=== PATIENT | female | born 1985 | race Caucasian/White ===

== ENCOUNTER → 2021-02-10 15:30 | Outpatient (BNVA) | payer OTHER, SELFPAY | PROVIDERS: Family Provider Family Medicine; Visit Provider Obstetrics & Gynecology | DX: Z12.4 Encounter for screening for malignant neoplasm of cervix (principal); R63.5 Abnormal weight gain | CPT/HCPCS: 88175 ==

== ENCOUNTER → 2021-02-12 09:15 | Outpatient (BNVA) | payer OTHER, SELFPAY | PROVIDERS: Family Provider Family Medicine; Visit Provider Obstetrics & Gynecology | DX: R63.5 Abnormal weight gain (principal) | CPT/HCPCS: 80053; 80061; 83036; 85025 ==

== ENCOUNTER → 2021-02-24 10:10 | Outpatient (BNVA) | payer OTHER, SELFPAY | PROVIDERS: Family Provider Family Medicine; Visit Provider Obstetrics & Gynecology | DX: R63.5 Abnormal weight gain (principal) | CPT/HCPCS: 84443 ==

== ENCOUNTER → 2024-09-16 11:03 | Outpatient (BNVA) | payer OTHER, SELFPAY | PROVIDERS: Family Provider Family Medicine; PCP Family Medicine; Visit Provider Registered Nurse Neonatal Intensive Care | DX: Z20.818 Contact with and (suspected) exposure to other bacterial communicable diseases (principal) | CPT/HCPCS: 87880 ==

== ENCOUNTER → 2024-09-19 16:54 | Outpatient (BNVA) | payer OTHER, SELFPAY | PROVIDERS: Family Provider Family Medicine; PCP Family Medicine | DX: J18.1 Lobar pneumonia, unspecified organism (principal); R05.3 Chronic cough; R05.9 Cough, unspecified | CPT/HCPCS: 71046; 87400; 87426 ==

== ENCOUNTER 2024-09-22 20:14 | Observation (INO) | payer OTHER, SELFPAY ==
[2024-09-22 20:18] VITALS: BP 144/85; PULSE 126; RESP 22; TEMP 37; O2SAT 89; BMI 38.2
--- NOTE | 2024-09-22 20:31 | ED_ITS ---
Documented by User: JACE Beaver 09/22/24 23:16 HPI - SOB/Dyspnea 2 General: Chief Complaint: Shortness of Breath/Dyspnea Stated Complaint: pnemonia + o2 in 80 SOB Time Seen by Provider: 09/22/24 20:30 History of Present Illness: HPI Narrative: 39-year-old female comes in today with s hortness of breath. Patient reports her illness started on the14 September. Patient was seen on the and was treated for strep pharyngitis with amoxicillin. Patient strep test was negative at that time but her son had a positive test. Patient on the we follow back up due to persistent symptoms and cough. Patient was evaluated for COVID and flu at that time and was negative. Patient then was given a injected with antibiotic and started on cefdinir. Patient reports that her oxygen saturation at home has been in the upper 80s to low 90s. Patient came in tonight due to persistent symptoms and feeling of shortness of breath. Patient has no chronic medical problems. Patient's had had 2 life and fifth bursts. Patient takes no routine medicines. Chest x-ray noted some left lower lobe pneumonia and right upper lobe pneumonia on the . Related Data Previous Rx's Medication Instructions Recorded fluticasone propionate 50 2 spray intranasal DAILY #16 grams 09/13/23 mcg/actuation nasal spray,suspension (Flonase Allergy Relief) cefdinir 300 mg capsule 300 mg PO BID #20 caps 09/19/24 Allergies Allergy/AdvReac Type Severity Reaction Status Date / Time No Known Allergies Allergy Verified 09/22/24 20:25 Review of Systems 2 General: Reports: 10 or more systems reviewed and unremarkable except in HPI and below Resp: Reports: dyspnea PFSH ED 2 PFSH: Medical History No pertinent past medical history Surgical History No history of previous surgery Family History Father Diabetes Mother Thyroid disease Hypertension Denies family history of Colon cancer Ovarian cancer Heart disease Hyperlipidemia Breast cancer Uterine cancer Stroke Social History Smoking and tobacco/nicotine status: unknown if used tobacco/nicotine Alcohol intake: current Alcohol intake frequency: few times a month Substance/Drug Use: never Household members: spouse and children Marital status: Number of children: 2 Current occupational status: employed Current occupation: clerk travel reservations for [employer] Leisure activites: reading Special bridget needs: No Agree to transfusion: Yes Physical Exam 2 Const: COMMON NORMALS: alert HENMT: COMMON NORMALS: normocephalic HEAD & SCALP: normocephalic Neck/C-Spine: COMMON NORMALS: full ROM Resp: COMMON NORMALS: normal respiratory effort AUSCULTATION: crackles Cardio: COMMON NORMALS: regular rhythm RATE: tachycardic RHYTHM: regular rhythm GI: COMMON NORMALS: non-tender : COMMON NORMALS: Yes no CVA tenderness BLADDER/KIDNEY EXAM: Yes no CVA tenderness Back/Pelvis: COMMON NORMALS: no CVA tenderness Extremity: COMMON NORMALS: full ROM Neuro: SENSORIUM/ORIENTATION: Yes alert Skin: COMMON NORMALS: turgor normal GENERAL SKIN EXAM: turgor normal Course 2 Vital Signs: Vital signs: Vital Signs Temperature 98.6 F 09/22/24 20:18 Pulse Rate 96 09/22/24 22:00 Respiratory Rate 16 09/22/24 22:00 Blood Pressure 134/70 09/22/24 22:00 Pulse Oximetry 95 09/22/24 22:00 Oxygen Delivery Me thod Nasal Cannula 09/22/24 22:00 Oxygen Flow Rate 1.5 09/22/24 22:00 MDM - SOB/Dyspnea Medical Decision Making Patient comes in for persistent worsening symptoms after being diagnosed with pneumonia on 19 September. On exam patient has crackles in the lung dudley throughout. Patient's oxygen saturation is 89% on room air. Patient's pulse was 126 and respirations 22 patient was afebrile and blood pressure was 144/85. Differential diagnosis includes pneumonia, respiratory failure, sepsis, pulmonary embolism, CHF. CBC was unremarkable. D-dimer was 2. CMP noted sodium 133, potassium 3.1, CRP of 168. Chest x-ray noted no change in pneumonia with the major consolidation being on the left upper lobe and some infrahilar and left lower lobe infiltrates. CT ruled out PE and confirmed probable pneumonia. Reviewed exam with Dr. Dangelo he agreed with plan for admission to hospitalist services for antibiotic therapy and oxygen therapy. Discussed patient with Dr. Adams who agreed with admission. Lab Data 09/22/24 20:37 09/22/24 20:37 Labs/Radiology: Radiology Impressions Chest CTA 09/22/24 20:46 IMPRESSION: 1. No evidence of a pulmonary embolism. 2. Bilateral patchy pulmonary opacities and areas of consolidation most severe in the right upper lobe. Findings consistent with provided history of pneumonia. Chest X-Ray 09/22/24 20:46 IMPRESSION: No significant change in the patchy pulmonary opacities/infiltrates predominantly in the right upper lobe and left lower lobe and lingula. Laboratory Results WBC 6.10 10^3/uL (3.29-11.43) 09/22/24 20:37 RBC 4.30 10^6/uL (3.85-5.65) 09/22/24 20:37 Hgb 11.80 g/dL (11.27-16.99) 09/22/24 20:37 Hct 35.7 % (36-47) L 09/22/24 20:37 MCV 83.0 fl (85-98) L 09/22/24 20:37 MCH 27.4 pg (27-33) 09/22/24 20:37 MCHC 33.1 g/dL (30-55) 09/22/24 20:37 RDW 13.4 % (12.1-15.1) 09/22/24 20:37 Plt Count 292 10^3/cmm (157-399) 09/22/24 20:37 MPV 9.7 fL (7.4-10.4) 09/22/24 20:37 Neut % (Auto) 71.4 % 09/22/24 20:37 Lymph % (Auto) 17.4 % 09/22/24 20:37 [place] % (Auto) 9.7 % 09/22/24 20:37 Eos % (Auto) 0.3 % 09/22/24 20:37 Baso % (Auto) 0.2 % 09/22/24 20:37 Neut # (Auto) 4.36 10^3/uL (1.8-7.7) 09/22/24 20:37 Lymph # (Auto) 1.1 10^3/uL (0.8-4.8) 09/22/24 20:37 [place] # (Auto) 0.6 10^3/uL (0.2-0.9) 09/22/24 20:37 Eos # (Auto) 0.0 10^3/uL (0.0-0.8) 09/22/24 20:37 Baso # (Auto) 0.0 10^3/uL (0.0-0.1) 09/22/24 20:37 Nucleated RBC % (auto) 0 % 09/22/24 20:37 Nucleated RBCs # 0.0 /100WBC 09/22/24 20:37 ESR 67 mm/hr (0-15) H 09/22/24 20:37 D-Dimer 2.09 ug/mLFEU (0-0.59) H 09/22/24 20:37 Sodium 133 mmol/L (136-145) L 09/22/24 20:37 Potassium 3.1 mmol/L (3.5-5.1) L 09/22/24 20:37 Chloride 92 mmol/L (98-107) L 09/22/24 20:37 Carbon Dioxide 26 mmol/L (22-29) 09/22/24 20:37 Anion Gap 18.1 (5-19) 09/22/24 20:37 BUN 4 mg/dL (6-20) L 09/22/24 20:37 Creatinine 0.6 mg/dL (0.5-0.9) 09/22/24 20:37 GFR Calculation 111.9 mL/min (90-130) 09/22/24 20:37 Glucose 110 mg/dL (65-115) 09/22/24 20:37 Calculated Osmolality 274 mOsm/kg (285-295) L 09/22/24 20:37 Lactic Acid 1.1 mmol/L (0.5-2.2) 09/22/24 20:37 Calcium 8.3 mg/dL (8.5-10.5) L 09/22/24 20:37 Total Bilirubin 0.3 mg/dL (0.15-1.2) 09/22/24 20:37 AST 22 U/L (0-32) 09/22/24 20:37 ALT 17 U/L (0-33) 09/22/24 20:37 Alkaline Phosphatase 42 U/L (35-105) 09/22/24 20:37 C-Reactive Protein 168.4 mg/L (0.0-4.9) H 09/22/24 20:37 Total Protein 7.5 g/dL (6.6-8.7) 09/22/24 20:37 Albumin 3.7 g/dL (3.5-5.2) 09/22/24 20:37 Globulin 3.8 g/dL (1.3-4.6) 09/22/24 20:37 Procalcitonin 0.11 ng/mL (0-0.5) 09/22/24 20:37 HCG, Qual Negative (Negative) 09/22/24 20:37 Urine Color Yellow (Yellow) 09/22/24 22:05 Urine Appearance Clear (CLEAR) 09/22/24 22: Urine pH 8.0 (5-7) A 09/22/24 22: Ur Specific [place] 1.083 (1.005-1.030) H 09/22/24 22: Urine Protein 1+ (Negative) A 09/22/24 22: Urine Glucose (UA) Negative (Normal) 09/22/24 22: Urine Ketones 2+ (Negative) H 09/22/24 22:05 Urine Blood Negative (Negative) 09/22/24 22: Urine Nitrate Negative (Negative) 09/22/24 22: Urine Bilirubin Negative (Negative) 09/22/24 22: Urine Urobilinogen 2.0 mg/dL (Negative) H 09/22/24 22:05 Ur Leukocyte Esterase Negative (Negative) 09/22/24 22:05 Urine RBC 0-2 /hpf (0-2) 09/22/24 22:05 Urine WBC 0-5 /hpf (0-5) 09/22/24 22:05 Ur Squamous Epith Cells 0-5 /hpf (0-5) 09/22/24 22:05 Amorphous Sediment Not Reportable 09/22/24 22:05 Urine Bacteria None seen /hpf (NONE) 09/22/24 22: Hyaline Casts 0.40 /lpf 09/22/24 22:05 Adenovirus (PCR) Not detected (NOT DETECT) 09/22/24 21:28 C. pneumoniae DNA (PCR) Not detected (NOT DETECT) 09/22/24 21: Coronavirus 229E (PCR) Not detected (NOT DETECT) 09/22/24 21:28 Human Metapneumovir PCR Not detected (NOT DETECT) 09/22/24 21:28 Influenza A (H1) PCR Not detected (NOT DETECT) 09/22/24 21:28 Influ A (H1/09) PCR Not detected (NOT DETECT) 09/22/24 21:28 Influenza A (H3) PCR Not detected (NOT DETECT) 09/22/24 21:28 Influenza Type A (PCR) Not detected (NOT DETECT) 09/22/24 21:28 Influenza Type B (PCR) Not detected (NOT DETECT) 09/22/24 21:28 M. pneumoniae (PCR) Not detected (NOT DETECT) 09/22/24 21:28 Parainfluenza 1 (PCR) Not detected (NOT DETECT) 09/22/24 21:28 Parainfluenza 2 (PCR) Not detected (NOT DETECT) 09/22/24 21:28 Parainfluenza 3 (PCR) Not detected (NOT DETECT) 09/22/24 21:28 Parainfluenza 4 (PCR) Not detected (NOT DETECT) 09/22/24 21:28 RSV Type A (PCR) Not detected (NOT DETECT) 09/22/24 21:28 RSV Type B (PCR) Not detected (NOT DETECT) 09/22/24 21:28 Entero/Rhino (PCR) Not detected (NOT DETECT) 09/22/24 21:28 SARS-CoV-2 (PCR) Not detected (NOT DETECT) 09/22/24 21:28 All radiology interpretation(s) finalized by discharge EKG Data EKG 1: I personally reviewed and interpreted this EKG as follows: EKG Interpretation Date: 09/22/24 EKG interpretation time: 21:54 Prior EKG tracings: not available for review Interpretation: EKG shows a sinus rhythm with a regular rate at [address] elevation or ectopy is noted. No prior exams available for comparison. Computer Generated Interpretation: Sinus rhythm. Normal EKG. Unconfirmed report. Discharge Plan Discharge Patient Disposition: Admitted As Inpatient Clinical Impression: Hypoxemia Bilateral pneumonia Qualifiers: Pneumonia type: due to unspecified organism Lung location: unspecified part of lung Qualified Code(s): J18.9 - Pneumonia, unspecified organism Condition: Stable Coding Level of Care Code ED Release Specialist for g Fwd Documented by User: Armand Dangelo DO 09/23/24 00:21 HPI - SOB/Dyspnea 2 General: Chief Complaint: Shortness of Breath/Dyspnea Stated Complaint: pnemonia + o2 in 80 SOB Time Seen by Provider: 09/22/24 20:30 Related Data Previous Rx's Medication Instructions Recorded fluticasone propionate 50 2 spray intranasal DAILY #16 grams 09/13/23 mcg/actuation nasal spray,suspension (Flonase Allergy Relief) cefdinir 300 mg capsule 300 mg PO BID #20 caps 09/19/24 Allergies Allergy/AdvReac Type Severity Reaction Status Date / Time No Known Allergies Allergy Verified 09/22/24 20:25 PFSH ED 2 PFSH: Medical History No pertinent past medical history Surgical History No history of previous surgery Family History Father Diabetes Mother Thyroid disease Hypertension Denies family history of Colon cancer Ovarian cancer Heart disease Hyperlipidemia Breast cancer Uterine cancer Stroke Social History Smoking and tobacco/nicotine status: unknown if used tobacco/nicotine Alcohol intake: current Alcohol intake frequency: few times a month Substance/Drug Use: never Household members: spouse and children Marital status: Number of children: 2 Current occupational status: employed Current occupation: clerk travel reservations for [employer] Leisure activites: reading Special bridget needs: No Agree to transfusion: Yes Course 2 Vital Signs: Vital signs: Vital Signs Temperature 98.6 F 09/22/24 20:18 Pulse Rate 96 09/22/24 22:00 Respiratory Rate 16 09/22/24 22:00 Blood Pressure 134/70 09/22/24 22:00 Pulse Oximetry 95 09/22/24 22:00 Oxygen Delivery Me thod Nasal Cannula 09/22/24 22:00 Oxygen Flow Rate 1.5 09/22/24 22:00 MDM - SOB/Dyspnea Medical Decision Making Patient comes in for persistent worsening symptoms after being diagnosed with pneumonia on 19 September. On exam patient has crackles in the lung dudley throughout. Patient's oxygen saturation is 89% on room air. Patient's pulse was 126 and respirations 22 patient was afebrile and blood pressure was 144/85. Differential diagnosis includes pneumonia, respiratory failure, sepsis, pulmonary embolism, CHF. CBC was unremarkable. D-dimer was 2. CMP noted sodium 133, potassium 3.1, CRP of 168. Chest x-ray noted no change in pneumonia with the major consolidation being on the left upper lobe and some infrahilar and left lower lobe infiltrates. CT ruled out PE and confirmed probable pneumonia. Reviewed exam with Dr. Dangelo he agreed with plan for admission to hospitalist services for antibiotic therapy and oxygen therapy. Discussed patient with Dr. Adams who agreed with admission. This patient was originally seen by JACE Soliz.? I agree with his history, evaluation, and treatment. Lab Data 09/22/24 20:37 09/22/24 20:37 Labs/Radiology: Radiology Impressions Chest CTA 09/22/24 20:46 IMPRESSION: 1. No evidence of a pulmonary embolism. 2. Bilateral patchy pulmonary opacities and areas of consolidation most severe in the right upper lobe. Findings consistent with provided history of pneumonia. Chest X-Ray 09/22/24 20:46 IMPRESSION: No significant change in the patchy pulmonary opacities/infiltrates predominantly in the right upper lobe and left lower lobe and lingula. Laboratory Results WBC 6.10 10^3/uL (3.29-11.43) 09/22/24 20:37 RBC 4.30 10^6/uL (3.85-5.65) 09/22/24 20:37 Hgb 11.80 g/dL (11.27-16.99) 09/22/24 20:37 Hct 35.7 % (36-47) L 09/22/24 20:37 MCV 83.0 fl (85-98) L 09/22/24 20:37 MCH 27.4 pg (27-33) 09/22/24 20: MCHC 33.1 g/dL (30-55) 09/22/24 20:37 RDW 13.4 % (12.1-15.1) 09/22/24 20:37 Plt Count 292 10^3/cmm (157-399) 09/22/24 20:37 MPV 9.7 fL (7.4-10.4) 09/22/24 20:37 Neut % (Auto) 71.4 % 09/22/24 20:37 Lymph % (Auto) 17.4 % 09/22/24 20:37 [place] % (Auto) 9.7 % 09/22/24 20:37 Eos % (Auto) 0.3 % 09/22/24 20:37 Baso % (Auto) 0.2 % 09/22/24 20:37 Neut # (Auto) 4.36 10^3/uL (1.8-7.7) 09/22/24 20:37 Lymph # (Auto) 1.1 10^3/uL (0.8-4.8) 09/22/24 20:37 [place] # (Auto) 0.6 10^3/uL (0.2-0.9) 09/22/24 20:37 Eos # (Auto) 0.0 10^3/uL (0.0-0.8) 09/22/24 20:37 Baso # (Auto) 0.0 10^3/uL (0.0-0.1) 09/22/24 20:37 Nucleated RBC % (auto) 0 % 09/22/24 20:37 Nucleated RBCs # 0.0 /100WBC 09/22/24 20:37 ESR 67 mm/hr (0-15) H 09/22/24 20:37 D-Dimer 2.09 ug/mLFEU (0-0.59) H 09/22/24 20:37 Sodium 133 mmol/L (136-145) L 09/22/24 20:37 Potassium 3.1 mmol/L (3.5-5.1) L 09/22/24 20:37 Chloride 92 mmol/L (98-107) L 09/22/24 20:37 Carbon Dioxide 26 mmol/L (22-29) 09/22/24 20:37 Anion Gap 18.1 (5-19) 09/22/24 20:37 BUN 4 mg/dL (6-20) L 09/22/24 20:37 Creatinine 0.6 mg/dL (0.5-0.9) 09/22/24 20:37 GFR Calculation 111.9 mL/min (90-130) 09/22/24 20: Glucose 110 mg/dL (65-115) 09/22/24 20:37 Calculated Osmolality 274 mOsm/kg (285-295) L 09/22/24 20:37 Lactic Acid 1.1 mmol/L (0.5-2.2) 09/22/24 20:37 Calcium 8.3 mg/dL (8.5-10.5) L 09/22/24 20:37 Total Bilirubin 0.3 mg/dL (0.15-1.2) 09/22/24 20: AST 22 U/L (0-32) 09/22/24 20:37 ALT 17 U/L (0-33) 09/22/24 20:37 Alkaline Phosphatase 42 U/L (35-105) 09/22/24 20:37 C-Reactive Protein 168.4 mg/L (0.0-4.9) H 09/22/24 20:37 Total Protein 7.5 g/dL (6.6-8.7) 09/22/24 20:37 Albumin 3.7 g/dL (3.5-5.2) 09/22/24 20:37 Globulin 3.8 g/dL (1.3-4.6) 09/22/24 20:37 Procalcitonin 0.11 ng/mL (0-0.5) 09/22/24 20:37 HCG, Qual Negative (Negative) 09/22/24 20: Urine Color Yellow (Yellow) 09/22/24 22:05 Urine Appearance Clear (CLEAR) 09/22/24 22:05 Urine pH 8.0 (5-7) A 09/22/24 22: Ur Specific [place] 1.083 (1.005-1.030) H 09/22/24 22:05 Urine Protein 1+ (Negative) A 09/22/24 22:05 Urine Glucose (UA) Negative (Normal) 09/22/24 22:05 Urine Ketones 2+ (Negative) H 09/22/24 22:05 Urine Blood Negative (Negative) 09/22/24 22:05 Urine Nitrate Negative (Negative) 09/22/24 22:05 Urine Bilirubin Negative (Negative) 09/22/24 22:05 Urine Urobilinogen 2.0 mg/dL (Negative) H 09/22/24 22:05 Ur Leukocyte Esterase Negative (Negative) 09/22/24 22:05 Urine RBC 0-2 /hpf (0-2) 09/22/24 22:05 Urine WBC 0-5 /hpf (0-5) 09/22/24 22:05 Ur Squamous Epith Cells 0-5 /hpf (0-5) 09/22/24 22:05 Amorphous Sediment Not Reportable 09/22/24 22:05 Urine Bacteria None seen /hpf (NONE) 09/22/24 22:05 Hyaline Casts 0.40 /lpf 09/22/24 22:05 Adenovirus (PCR) Not detected (NOT DETECT) 09/22/24 21:28 C. pneumoniae DNA (PCR) Not detected (NOT DETECT) 09/22/24 21: Coronavirus 229E (PCR) Not detected (NOT DETECT) 09/22/24 21: Human Metapneumovir PCR Not detected (NOT DETECT) 09/22/24 21:28 Influenza A (H1) PCR Not detected (NOT DETECT) 09/22/24 21:28 Influ A (H1/09) PCR Not detected (NOT DETECT) 09/22/24 21: Influenza A (H3) PCR Not detected (NOT DETECT) 09/22/24 21:28 Influenza Type A (PCR) Not detected (NOT DETECT) 09/22/24 21:28 Influenza Type B (PCR) Not detected (NOT DETECT) 09/22/24 21:28 M. pneumoniae (PCR) Not detected (NOT DETECT) 09/22/24 21:28 Parainfluenza 1 (PCR) Not detected (NOT DETECT) 09/22/24 21:28 Parainfluenza 2 (PCR) Not detected (NOT DETECT) 09/22/24 21:28 Parainfluenza 3 (PCR) Not detected (NOT DETECT) 09/22/24 21:28 Parainfluenza 4 (PCR) Not detected (NOT DETECT) 09/22/24 21:28 RSV Type A (PCR) Not detected (NOT DETECT) 09/22/24 21: RSV Type B (PCR) Not detected (NOT DETECT) 09/22/24 21:28 Entero/Rhino (PCR) Not detected (NOT DETECT) 09/22/24 21:28 SARS-CoV-2 (PCR) Not detected (NOT DETECT) 09/22/24 21:28 Discharge Plan Discharge Patient Disposition: Admitted As Inpatient Clinical Impression: Hypoxemia Bilateral pneumonia Qualifiers: Pneumonia type: due to unspecified organism Lung location: unspecified part of lung Qualified Code(s): J18.9 - Pneumonia, unspecified organism Condition: Stable Coding Level of Care Code ED Release Specialist for Jewell Whitmore
--- NOTE | 2024-09-22 20:46 | CTR_ITS ---
PROCEDURE INFORMATION: Exam: CTA Chest With Contrast Exam date and time: 09/22/2024 9:57 PM Age: 39 years old Clinical indication: Cough and shortness of breath and other: Hypoxia; Patient HX: C/O worsening cough with SOB. Hypoxic with sats in 80s on room air. Diagnosed with pneumonia last week. ; Additional info: Dyspnea, tachycardia TECHNIQUE: Imaging protocol: Computed tomographic angiography of the chest with contrast. Exam focused on the arteries. 3D rendering (Not supervised by radiologist): MIP and/or 3D reconstructed images were created by the technologist. Radiation optimization: All CT scans at this facility use at least one of these dose optimization techniques: automated exposure control; mA and/or kV adjustment per patient size (includes targeted exams where dose is matched to clinical indication); or iterative reconstruction. Contrast material: OMNI 350; Contrast volume: 55 ml; Contrast route: INTRAVENOUS (IV); COMPARISON: CR XR chest 2V* [id number] 09/22/2024 8:49 PM RADIATION DOSE METRICS: Total DLP (mGy-cm): 422.37 FINDINGS: Pulmonary arteries: The pulmonary arteries are well opacified with contrast. No evidence of a pulmonary embolism. Aorta: Unremarkable thoracic aorta without aneurysm or dissection. Lungs: Scattered patchy airspace opacities and consolidation bilaterally most severe in the right upper lobe consistent with provided history of pneumonia. Pleural spaces: No pneumothorax or pleural effusion. Heart: Normal size of the heart. No pericardial effusion. Lymph nodes: Scattered mediastinal and hilar lymph nodes, likely reactive. Intraperitoneal space: The visualized upper abdominal solid organs and hollow viscera are unremarkable. Bones/joints: Regional osseous structures have a normal appearance. No fracture, aggressive osseous lesion or significant degenerative change is seen. Soft tissues: The visualized superficial soft tissues have a normal appearance. CT/CT angio chest PE protcl [id number] IMPRESSION: 1. No evidence of a pulmonary embolism. 2. Bilateral patchy pulmonary opacities and areas of consolidation most severe in the right upper lobe. Findings consistent with provided history of pneumonia.
--- NOTE | 2024-09-22 20:46 | XRR_ITS ---
PROCEDURE INFORMATION: Exam: XR Chest Exam date and time: 09/22/2024 8:49 PM Age: 39 years old Clinical indication: Cough and shortness of breath; Patient HX: C/O worsening cough with SOB. Hypoxic with sats in 80s on room air. Diagnosed with pneumonia last week. TECHNIQUE: Imaging protocol: Radiologic exam of the chest. Views: 2 views. COMPARISON: CR XR chest 2V* [id number] 09/22/2024 8:49 PM FINDINGS: Lungs: Patchy opacity in the right upper lobe and left lower lobe and lingular distributions without significant change from recent prior. Pleural spaces: No pneumothorax or pleural effusion. Heart/Mediastinum: Normal size of the cardiac silhouette. Bones/joints: Regional osseous structures are unremarkable. XR/XR chest 2V* [id number] IMPRESSION: No significant change in the patchy pulmonary opacities/infiltrates predominantly in the right upper lobe and left lower lobe and lingula.
[2024-09-22 20:50] LABS: Erythrocyte Sedimentation Rate 67 mm/hr (0-15)
[2024-09-22 20:52] LABS: Basophils % 0.2 %; Eosinophils % 0.3 %; Hematocrit 35.7 % (36-47); Lymphocytes # 1.1 10^3/uL (0.8-4.8); Lymphocytes % 17.4 %; Mean Corpuscular HGB Conc 33.1 g/dL (30-55); Mean Corpuscular Hemoglobin 27.4 pg (27-33); Mean Platelet Volume 9.7 fL (7.4-10.4); Monocytes # 0.6 10^3/uL (0.2-0.9); Monocytes % 9.7 %; Neutrophils # 4.36 10^3/uL (1.8-7.7); Neutrophils % 71.4 %; Nucleated Red Blood Cells % 0 %; Platelet Count 292 10^3/cmm (157-399); Red Cell Distribution Width 13.4 % (12.1-15.1)
[2024-09-22] MEDS: iohexol 350 mg/mL 500 mL Btl (per mL) IV (21:03)
[2024-09-22 21:09] LABS: HCG, Serum Qual Negative (Negative)
[2024-09-22 21:12] LABS: D Dimer 2.09 ug/mLFEU (0-0.59)
[2024-09-22 21:16] LABS: Alanine Aminotransferase 17 U/L (0-33); Albumin Level 3.7 g/dL (3.5-5.2); Alkaline Phosphatase 42 U/L (35-105); Anion Gap 18.1 (5-19); Aspartate Amino Transferase 22 U/L (0-32); Blood Urea Nitrogen 4 mg/dL (6-20); C Reactive Protein 168.4 mg/L (0.0-4.9); Calcium 8.3 mg/dL (8.5-10.5); Carbon Dioxide 26 mmol/L (22-29); Chloride 92 mmol/L (98-107); Creatinine Clr Calc Pharmacy 141.7513; Globulin 3.8 g/dL (1.3-4.6); Glomerular Filtration Rate 111.9 mL/min (90-130); Glucose 110 mg/dL (65-115); Osmolality Calculated 274 mOsm/kg (285-295); Potassium 3.1 mmol/L (3.5-5.1); Sodium 133 mmol/L (136-145); Total Bilirubin 0.3 mg/dL (0.15-1.2); Total Protein 7.5 g/dL (6.6-8.7)
[2024-09-22 21:17] LABS: Lactic Sepsis W/Reflex 1.1 mmol/L (0.5-2.2)
[2024-09-22] MEDS: sodium chloride 0.9% 1,000 ML 999 ML IV (21:22)
[2024-09-22 21:23] LABS: Procalcitonin 0.11 ng/mL (0-0.5)
[2024-09-22] MEDS: AZITHROMYCIN ADD-Vantage 500 MG in 0.9% NaCl ADD-Vantage 250 ML 250 MG IV (21:23)
[2024-09-22 21:32] VITALS: BP 141/87; PULSE 90; RESP 16; O2SAT 99
--- NOTE | 2024-09-22 21:48 | ECG_ITS ---
"[facility]: 2024-09[facility]22 Pat Name: Marge Estrada Department: Room: Gender: Female Public Health Administrator: : [id number] Requested By: Aric Ward Order Number: [id number] Cristofer MD: NAFISA SOLARES Measurements Intervals [place] Rate: 94 P: 53 PA: 160 QRS: 50 QRSD: 85 T: 39 QT: 337 QTc: 422 Interpretive Statements SINUS RHYTHM No previous ECG available for comparison Electronically Signed On 09-27-2024 00:43:46 BIOMECHANICAL ENGINEER by NAFISA SOLARES [email or web address] [email or web address]
[2024-09-22 22:00] VITALS: BP 134/70; PULSE 96; RESP 16; O2SAT 95
[2024-09-22 22:14] LABS: Bilirubin Urine Negative (Negative); Blood Urine Negative (Negative); Glucose Urine UA Negative (Normal); Ketones Urine 2+ (Negative); Leukocyte Esterase Urine Negative (Negative); Nitrate Urine Negative (Negative); Protein Urine 1+ (Negative); Urine Appearance Clear (CLEAR); Urine Color Yellow (Yellow)
[2024-09-22 22:15] VITALS: BP 124/65; PULSE 102; RESP 18; O2SAT 90
[2024-09-22 22:16] LABS: Add Urine Microscopic? YES; Bacteria Urine None Seen /hpf; RBC Urine 0-2 /hpf (0-2); Squamous Epithelial Cell Urine 0-5 /hpf (0-5); WBC Urine 0-5 /hpf (0-5)
[2024-09-22 22:28] LABS: Specific Gravity, Urine 1.083 (1.005-1.030); UA Slide Review UA Slide Review Perf
[2024-09-22 22:45] VITALS: BP 120/66; PULSE 93; RESP 15; O2SAT 94
[2024-09-22 23:26] LABS: Adenovirus Not Detected (NOT DETECT); Chlamydia Pneumoniae Not Detected (NOT DETECT); Coronavirus 229E,HKU1,NL63,OC4 Not Detected (NOT DETECT); Human Metapneumovirus Not Detected (NOT DETECT); Human Rhinovirus/Enterovirus Not Detected (NOT DETECT); Influenza A Not Detected (NOT DETECT); Influenza A H1 Not Detected (NOT DETECT); Influenza A H1-2009 Not Detected (NOT DETECT); Influenza A H3 Not Detected (NOT DETECT); Influenza B Not Detected (NOT DETECT); Mycoplasma Pneumoniae Not Detected (NOT DETECT); Parainfluenza Virus Type 1 Not Detected (NOT DETECT); Parainfluenza Virus Type 2 Not Detected (NOT DETECT); Parainfluenza Virus Type 3 Not Detected (NOT DETECT); Parainfluenza Virus Type 4 Not Detected (NOT DETECT); Respiratory Syncytial Virus A Not Detected (NOT DETECT); Respiratory Syncytial Virus B Not Detected (NOT DETECT); SARS-COV-2 Not Detected (NOT DETECT)
[2024-09-22] MEDS: cefTRIAXone 2,000 mg SDV 2000 MG IVP (23:40)
[2024-09-23] VITALS (8 sets, daily range): BP systolic 104–124; BP diastolic 60–84; PULSE 80–98; RESP 16–20; TEMP 36.4–37.2; O2SAT 90–96
--- NOTE | 2024-09-23 00:17 | P.HP_ITS ---
Providers/Chief Complaint 2 Primary Care Provider: Colleen Merritt MD Chief Complaint: pnemonia + o2 in 80 SOB History of Present Illness Mrage Estrada is a 39 year old female in general good health developed cough Monday the and was seen at urgent care on the following Monday found to have erythematous eardrums but negative strep throat so treated with amoxicillin. still not improved she had a chest x-ray diagnosing pneumonia and started on cefdinir 300 mg twice a day patient worsened and presented today due to saturations of 80% at home and found to have 89% on room air here. She has been given azithromycin and Rocephin. Nasal respiratory panel done and negative. Patient states that the nasal swab she had at the urgent care with just the nares. COVID was negative as well as flu on that nares test on . Today her C- reactive protein 160 white blood count 6000 Review of Systems 2 Narrative: General positive for fevers 103 on Monday 100.4 today Musculoskeletal she had myalgias on Monday the worst but has not had for the last 2 days Respiratory positive for brown phlegm CV no chest pain or palpitations GI no nausea vomiting diarrhea constipation negative Medications/Allergies Home Medications Medication Instructions Recorded Confirmed Last Taken Type fluticasone propionate 50 2 spray intranasal DAILY #16 grams 09/13/23 09/19/24 Unknown Rx mcg/actuation nasal spray,suspension (Flonase Allergy Relief) cefdinir 300 mg capsule 300 mg PO BID #20 caps 09/19/24 09/19/24 Unknown Rx Allergies Allergy/AdvReac Type Severity Reaction Status Date / Time No Known Allergies Allergy Verified 09/22/24 20:25 PFSH Acute 2 PFSH: Medical History No pertinent past medical history Surgical History No history of previous surgery Family History Father Diabetes Mother Thyroid disease Hypertension Denies family history of Colon cancer Ovarian cancer Heart disease Hyperlipidemia Breast cancer Uterine cancer Stroke Social History Smoking and tobacco/nicotine status: unknown if used tobacco/nicotine Alcohol intake: current Alcohol intake frequency: few times a month Substance/Drug Use: never Household members: spouse and children Marital status: Number of children: 2 Current occupational status: employed Current occupation: instructor dancing for [employer] Leisure activites: reading Special bridget needs: No Agree to transfusion: Yes Vitals/I&O/Wt Last Vital Signs Temp 98.6 F 09/22/24 20:18 Pulse 96 09/22/24 22:00 Resp 16 09/22/24 22:00 BP 134/70 09/22/24 22:00 Pulse Ox 95 09/22/24 22:00 O2 Del Method Nasal Cannula 09/22/24 22:00 O2 Flow Rate 1.5 09/22/24 22:00 09/22/24 09/22/24 09/23/24 14:59 22:59 06:59 Intake Total 1250 / 1250 Balance 1250 / 1250 Weight last 48 hrs Weight 97.976 kg Physical Exam 2 Narrative: General Well-developed well-nourished female in no acute cardiopulmonary distress CV regular rate and rhythm Lungs prolonged respiratory phase with mild diffuse wheezing she has crackles heard in the right and left lung mid dudley right worse than left Legs no edema Skin warm and dry Mentation alert and oriented x 3 Mood and affect normal Data 09/22/24 20:37 09/22/24 20:37 Micro: Microbiology 09/22/24 20:41 Blood Culture - Preliminary Blood SPECIMEN COLLECTED 09/22/24 20:37 Blood Culture - Preliminary Blood SPECIMEN COLLECTED A&P Assessment and plan (1) Bilateral pneumonia: Looks like atypical pneumonia. Cannot exclude that she had COVID or disease could just missed swab based on the history that she is giving me. White count is normal. Will treat with Decadron. Send sputum culture. If negative and patient improving likely she can go home on Decadron and azithromycin tomorrow Qualifiers: Lung location: unspecified part of lung Pneumonia type: due to unspecified organism Qualified Code(s): J18.9 - Pneumonia, unspecified organism (2) Hypoxemia: Admitted to the hospital for hypoxemia start steroids Attestations 2 Medical Necessity Statement*: Anticipate hospital stay to be less than 2 midnights Coding Level of Care Code 55623 Diagnoses Bilateral pneumonia J18.9 Lung location: unspecified part of lung Pneumonia type: due to unspecified organism Hypoxemia R09.02 Time Spent (min) 35
[2024-09-23] MEDS: dexamethasone 4 mg/mL INJ PO (00:51)
[2024-09-23] MEDS: azithromycin 250 mg Tablet 500 MG PO (11:54)
--- NOTE | 2024-09-23 14:11 | PM.MISC ---
Miscellaneous Note Note: Continue management as per history physical document. Patient requiring 2 L nasal cannula at this time saturating 92%. Will need home oxygen evaluation at discharge ? Continue IV ceftriaxone at this time and oral azithromycin. May consider discharging in next 24 to 48 hours.
[2024-09-23] MEDS: potassium chloride ER 20 mEq Tablet 40 MEQ PO (14:43)
[2024-09-23] MEDS: cefTRIAXone 1,000 mg SDV 1000 MG IVP (22:35)
[2024-09-24] VITALS: BP 98/63; PULSE 76; RESP 18; TEMP 36.8; O2SAT 97
[2024-09-24 04:00] VITALS: BP 104/69; PULSE 77; RESP 17; TEMP 36.4; O2SAT 98
[2024-09-24 05:37] LABS: Basophils % 0.2 %; Eosinophils % 0.8 %; Hematocrit 35.4 % (36-47); Lymphocytes # 1.7 10^3/uL (0.8-4.8); Lymphocytes % 33.7 %; Mean Corpuscular HGB Conc 32.2 g/dL (30-55); Mean Corpuscular Hemoglobin 27.5 pg (27-33); Mean Corpuscular Volume 85.5 fl (85-98); Mean Platelet Volume 9.5 fL (7.4-10.4); Monocytes # 0.4 10^3/uL (0.2-0.9); Monocytes % 8.8 %; Neutrophils # 2.61 10^3/uL (1.8-7.7); Neutrophils % 52.5 %; Nucleated Red Blood Cells % 0 %; Platelet Count 314 10^3/cmm (157-399); Red Blood Count 4.14 10^6/uL (3.85-5.65); Red Cell Distribution Width 13.7 % (12.1-15.1); White Blood Count 4.98 10^3/uL (3.29-11.43)
[2024-09-24 06:02] LABS: Anion Gap 15.7 (5-19); Blood Urea Nitrogen 8 mg/dL (6-20); Calcium 8.4 mg/dL (8.5-10.5); Carbon Dioxide 26 mmol/L (22-29); Chloride 102 mmol/L (98-107); Creatinine Clr Calc Pharmacy 142.2972; Glomerular Filtration Rate 111.9 mL/min (90-130); Glucose 97 mg/dL (65-115); Magnesium 2.2 mg/dL (1.7-2.3); Osmolality Calculated 288 mOsm/kg (285-295); Potassium 3.7 mmol/L (3.5-5.1); Sodium 140 mmol/L (136-145)
[2024-09-24 06:36] LABS: Slide Review Slide Review Perform
[2024-09-24] MEDS: azithromycin 250 mg Tablet 500 MG PO (07:35)
[2024-09-24 07:38] VITALS: BP 100/63; PULSE 84; RESP 16; TEMP 36.4; O2SAT 93
[2024-09-24 10:30] VITALS: O2SAT 94; O2SAT 96
[2024-09-24 11:30] VITALS: BP 111/61; PULSE 86; RESP 17; TEMP 36.5; O2SAT 95
--- NOTE | 2024-09-24 11:57 | PM.DCS ---
Discharge Providers Date of Admission: 09/23/24 00:29 Date of Discharge: September 24, 2024 Attending Provider at Admission: Jose Adams MD Attending Provider at Discharge: Nadine Ferraro MD Primary Care Provider: Colleen Merritt MD Diagnoses at Discharge Discharge Diagnosis (1) Bilateral pneumonia: Status: Acute Qualifiers: Lung location: unspecified part of lung Pneumonia type: due to unspecified organism Qualified Code(s): J18.9 - Pneumonia, unspecified organism (2) Hypoxemia: Status: Acute Reason for Visit Reason for Visit: pnemonia + o2 in 80 SOB Hospital Course Hospital Course Please see H&P for further details Patient was admitted with bilateral pneumonia. She was kept on ceftriaxone and azithromycin. Home oxygen evaluation done and she did not qualify for home oxygen. However was hypoxic on admission. She was requiring 2 L at first. Discharged home on levofloxacin for another 10 days and 3 days of prednisone. Patient to follow-up with primary care doctor and have a follow-up chest x-ray done in 6 weeks to ensure resolution of pneumonia. Clinically she feels better. CT did rule out PE. Physical Exam Narrative: General Well-developed well-nourished female in no acute cardiopulmonary distress CV regular rate and rhythm Lungs clear to auscultation bilaterally, mild pills present on the left. Legs no edema Skin warm and dry Mentation alert and oriented x 3 Mood and affect normal Discharge Data Studies Completed and Pending Completed Studies During Hospitalization Category Date Time Status CTA chest [CT angio chest PE protcl [id number]] Stat Cat Scan 09/22/24 20:46 Completed XR chest 2V* [id number] Stat Exams 09/22/24 20:46 Completed Pending at discharge Category Date Time Status Blood Culture Stat Lab 09/22/24 20:41 Results Radiology Impressions Chest CTA 09/22/24 20:46 IMPRESSION: 1. No evidence of a pulmonary embolism. 2. Bilateral patchy pulmonary opacities and areas of consolidation most severe in the right upper lobe. Findings consistent with provided history of pneumonia. Chest X-Ray 09/22/24 20:46 IMPRESSION: No significant change in the patchy pulmonary opacities/infiltrates predominantly in the right upper lobe and left lower lobe and lingula. Laboratory Results WBC 4.98 10^3/uL (3.29-11.43) 09/24/24 05:23 RBC 4.14 10^6/uL (3.85-5.65) 09/24/24 05:23 Hgb 11.40 g/dL (11.27-16.99) 09/24/24 05:23 Hct 35.4 % (36-47) L 09/24/24 05:23 MCV 85.5 fl (85-98) 09/24/24 05:23 MCH 27.5 pg (27-33) 09/24/24 05:23 MCHC 32.2 g/dL (30-55) 09/24/24 05:23 RDW 13.7 % (12.1-15.1) 09/24/24 05:23 Plt Count 314 10^3/cmm (157-399) 09/24/24 05:23 MPV 9.5 fL (7.4-10.4) 09/24/24 05:23 Neut % (Auto) 52.5 % 09/24/24 05:23 Lymph % (Auto) 33.7 % 09/24/24 05:23 Branch % (Auto) 8.8 % 09/24/24 05:23 Eos % (Auto) 0.8 % 09/24/24 05:23 Baso % (Auto) 0.2 % 09/24/24 05:23 Neut # (Auto) 2.61 10^3/uL (1.8-7.7) 09/24/24 05:23 Lymph # (Auto) 1.7 10^3/uL (0.8-4.8) 09/24/24 05:23 Branch # (Auto) 0.4 10^3/uL (0.2-0.9) 09/24/24 05:23 Eos # (Auto) 0.0 10^3/uL (0.0-0.8) 09/24/24 05:23 Baso # (Auto) 0.0 10^3/uL (0.0-0.1) 09/24/24 05:23 Nucleated RBC % (auto) 0 % 09/24/24 05:23 Nucleated RBCs # 0.0 /100WBC 09/24/24 05:23 ESR 67 mm/hr (0-15) H 09/22/24 20:37 D-Dimer 2.09 ug/mLFEU (0-0.59) H 09/22/24 20:37 Sodium 140 mmol/L (136-145) 09/24/24 05:23 Potassium 3.7 mmol/L (3.5-5.1) 09/24/24 05:23 Chloride 102 mmol/L (98-107) 09/24/24 05:23 Carbon Dioxide 26 mmol/L (22-29) 09/24/24 05:23 Anion Gap 15.7 (5-19) 09/24/24 05:23 BUN 8 mg/dL (6-20) 09/24/24 05:23 Creatinine 0.6 mg/dL (0.5-0.9) 09/24/24 05:23 GFR Calculation 111.9 mL/min (90-130) 09/24/24 05:23 Glucose 97 mg/dL (65-115) 09/24/24 05:23 Calculated Osmolality 288 mOsm/kg (285-295) 09/24/24 05:23 Lactic Acid 1.1 mmol/L (0.5-2.2) 09/22/24 20:37 Calcium 8.4 mg/dL (8.5-10.5) L 09/24/24 05:23 Magnesium 2.2 mg/dL (1.7-2.3) 09/24/24 05:23 Total Bilirubin 0.3 mg/dL (0.15-1.2) 09/22/24 20:37 AST 22 U/L (0-32) 09/22/24 20:37 ALT 17 U/L (0-33) 09/22/24 20:37 Alkaline Phosphatase 42 U/L (35-105) 09/22/24 20:37 C-Reactive Protein 168.4 mg/L (0.0-4.9) H 09/22/24 20:37 Total Protein 7.5 g/dL (6.6-8.7) 09/22/24 20:37 Albumin 3.7 g/dL (3.5-5.2) 09/22/24 20:37 Globulin 3.8 g/dL (1.3-4.6) 09/22/24 20:37 Procalcitonin 0.11 ng/mL (0-0.5) 09/22/24 20:37 HCG, Qual Negative (Negative) 09/22/24 20:37 Urine Color Yellow (Yellow) 09/22/24 22:05 Urine Appearance Clear (CLEAR) 09/22/24 22:05 Urine pH 8.0 (5-7) A 09/22/24 22:05 Ur Specific [place] 1.083 (1.005-1.030) H 09/22/24 22:05 Urine Protein 1+ (Negative) A 09/22/24 22:05 Urine Glucose (UA) Negative (Normal) 09/22/24 22: Urine Ketones 2+ (Negative) H 09/22/24 22:05 Urine Blood Negative (Negative) 09/22/24 22: Urine Nitrate Negative (Negative) 09/22/24 22: Urine Bilirubin Negative (Negative) 09/22/24 22: Urine Urobilinogen 2.0 mg/dL (Negative) H 09/22/24 22:05 Ur Leukocyte Esterase Negative (Negative) 09/22/24 22:05 Urine RBC 0-2 /hpf (0-2) 09/22/24 22:05 Urine WBC 0-5 /hpf (0-5) 09/22/24 22:05 Ur Squamous Epith Cells 0-5 /hpf (0-5) 09/22/24 22:05 Amorphous Sediment Not Reportable 09/22/24 22:05 Urine Bacteria None seen /hpf (NONE) 09/22/24 22:05 Hyaline Casts 0.40 /lpf 09/22/24 22:05 Adenovirus (PCR) Not detected (NOT DETECT) 09/22/24 21:28 C. pneumoniae DNA (PCR) Not detected (NOT DETECT) 09/22/24 21: Coronavirus 229E (PCR) Not detected (NOT DETECT) 09/22/24 21:28 Human Metapneumovir PCR Not detected (NOT DETECT) 09/22/24 21:28 Influenza A (H1) PCR Not detected (NOT DETECT) 09/22/24 21:28 Influ A (H1/09) PCR Not detected (NOT DETECT) 09/22/24 21: Influenza A (H3) PCR Not detected (NOT DETECT) 09/22/24 21:28 Influenza Type A (PCR) Not detected (NOT DETECT) 09/22/24 21:28 Influenza Type B (PCR) Not detected (NOT DETECT) 09/22/24 21:28 M. pneumoniae (PCR) Not detected (NOT DETECT) 11/03/24 21:28 Parainfluenza 1 (PCR) Not detected (NOT DETECT) 09/22/24 21:28 Parainfluenza 2 (PCR) Not detected (NOT DETECT) 09/22/24 21:28 Parainfluenza 3 (PCR) Not detected (NOT DETECT) 09/22/24 21:28 Parainfluenza 4 (PCR) Not detected (NOT DETECT) 09/22/24 21:28 RSV Type A (PCR) Not detected (NOT DETECT) 09/22/24 21:28 RSV Type B (PCR) Not detected (NOT DETECT) 09/22/24 21:28 Entero/Rhino (PCR) Not detected (NOT DETECT) 09/22/24 21:28 SARS-CoV-2 (PCR) Not detected (NOT DETECT) 09/22/24 21:28 Vitals Last Vital Signs Temp 97.7 F 09/24/24 11:30 Pulse 86 09/24/24 11:30 Resp 17 09/24/24 11:30 BP 111/61 09/24/24 11:30 Pulse Ox 95 09/24/24 11:30 O2 Del Method Room Air 09/24/24 11:30 O2 Flow Rate 2 09/24/24 08:00 Discharge Plan Discharge Patient Disposition: Home Condition: Stable Prescriptions: New levofloxacin 750 mg tablet 750 mg PO DAILY 10 Days Qty: 10 0RF albuterol sulfate 90 mcg/actuation aerosol powdr breath activated 2 inh inhalation Q6H PRN (Reason: shortness of breath or wheezing) Qty: 1 0RF prednisone 20 mg tablet 20 mg PO BID 3 Days Qty: 6 0RF Discontinued cefdinir 300 mg capsule 300 mg PO BID Qty: 20 0RF fluticasone propionate [Flonase Allergy Relief] 50 mcg/actuation spray,suspension 2 spray intranasal DAILY Qty: 16 0RF Rx Instructions: administer into each nostril Discharge Orders: Discharge Order (Routine); Ordered 09/24/24 Ordered By: Nadine Ferraro Other Ambulatory Orders: XR chest 2V insp/exp [id number] (Routine) Timeframe: 6 Weeks Facility: [facility] - Location: [facility] Ordered By: Nadine Ferraro Referrals: Colleen Merritt MD [Primary Care Provider] - 4-7 days (We have notified your physician's clinic of the need for a follow-up appointment to be scheduled. If you have not heard from them within the next 2 business days, please call them directly. ) Discharge Diet: Regular Discharge Activity: Increase activity as tolerated and Oxygen as instructed Patient Instructions: Albuterol (By breathing), Levofloxacin (By mouth), Pneumonia (GEN), Opioid Safety, Pneumonia Stoplight Discharge Attestations Time Spent in Discharge Care*: greater than 30 min Quality Metrics Clinical Quality Measures [ No reported AMI, CVA or VTE this stay] Coding Level of Care Code 41219 Total time (in minutes) for Discharge: 40 Diagnoses Bilateral pneumonia J18.9 Lung location: unspecified part of lung Pneumonia type: due to unspecified organism Hypoxemia R09.02
--- NOTE | 2024-09-24 13:13 | PC.NURSE ---
Discussed discharge with patient. Discussed new medications, changed medications and stopped medications. Supplied patient with a leg lau bag and demonstrated how to change from the big lau bag to leg bag and demonstrated how to empty both bags. Discussed patient coming in to the infusion center for antibiotics. Went over follow up appointments and to call urology clinic if they have not notified him within 2 business days. Patient verbalized understading of all things discussed.
--- NOTE | 2024-09-24 13:35 | PC.NURSE ---
Went over discharge medications, discontinued medications and discussed stop light with patient. Highlighted important information for patient. Patient verbalized understanding and ambulated out with family.
[2024-09-24 13:37] VITALS: BP 111/61; PULSE 17; RESP 86; TEMP 36.5; O2SAT 95
== END 2024-09-24 13:30 | disposition home or self-care (01) ==
LOC: ER 23:06 → MEDSURG 09-23 07:13
PROVIDERS: Admitting Provider Internal Medicine; Emergency Provider Nurse Practitioner Family; PCP Family Medicine; Visit Provider Internal Medicine
DX: J18.9 Pneumonia, unspecified organism (principal)
CPT/HCPCS: 36415; 71046; 71275; 80048; 80053; 81001; 83605; 83735; 84145; 84703; 85025; 85378; 85651; 86140; 87040; 87486; 87581; 87633; 93005; 94760; 96365; 96375; 96376; 99285; G0378; J0456; J0696; J1100; J7030; J7050; Q0144

== ENCOUNTER → 2025-07-22 08:12 | Outpatient (BNVA) | payer OTHER, SELFPAY | PROVIDERS: PCP Family Medicine; Visit Provider Family Medicine | DX: Z13.6 Encounter for screening for cardiovascular disorders (principal) | CPT/HCPCS: 80061 ==

== ENCOUNTER → 2025-11-19 10:07 | Outpatient (BNVA) | payer OTHER, SELFPAY | PROVIDERS: PCP Family Medicine; Visit Provider Family Medicine | DX: Z00.00 Encounter for general adult medical examination without abnormal findings (principal) | CPT/HCPCS: 80053; 85025 ==